=== PATIENT | male | born 1980 | race Caucasian/White ===

== ENCOUNTER → 2019-03-28 11:36 | Outpatient (BNVA) | payer OTHER, SELFPAY | PROVIDERS: Family Provider Nurse Practitioner Family; PCP Nurse Practitioner Family; Visit Provider Nurse Practitioner Family | DX: R53.82 Chronic fatigue, unspecified (principal) | CPT/HCPCS: 80053; 84443; 85025 ==

== ENCOUNTER 2020-12-15 18:04 | Emergency (ER) | payer SELFPAY ==
[2020-12-15 18:34] VITALS: BP 135/85; PULSE 92; RESP 18; TEMP 36.8; O2SAT 99; BMI 22.6
--- NOTE | 2020-12-15 18:40 | W.ED.EAR ---
HPI - Ear Problem General: Chief complaint: Ear Stated complaint: L Ear Lobe Injury Time Seen by Provider: 12/15/20 18:40 History of Present Illness: HPI Narrative: 40-year-old female comes in today with injury to the left earlobe. Patient was walking and tripped on a rug causing her fall against a shelf. Patient has a laceration sustained to the left earlobe. Patient denies any routine medications or medical problems. Patient appears well. Review of Systems General: Reports: 10 or more systems reviewed and unremarkable except in HPI and below Skin/Breast: Reports: other (Left earlobe laceration) [facility] PFSH: Family History (Updated 03/28/19 @ 11:25 by Lisa Guerrero LPN) Mother Family history of thyroid problem Social History (Updated 03/28/19 @ 11:26 by Lisa Guerrero LPN) Smoking and tobacco status: current every day smoker cigarettes Packs smoked per day: 0.5 Alcohol intake: never Lives independently: Yes Household members: spouse Housing: House Marital status: History of recent travel: No Physical Exam Const: COMMON NORMALS: no acute distress and patient oriented x3 GENERAL APPEARANCE: cooperative HENMT: COMMON NORMALS: normocephalic, TM's normal bilaterally and Normal external nose present HEAD & SCALP: normocephalic and other (Laceration to left earlobe, irregular and approximately 3 cm) NOSE: Normal external nose present TYMPANIC MEMBRANE: TM's normal bilaterally Eye: GENERAL EYE: appearance normal, both eyes and all related structures Neck/C-Spine: COMMON NORMALS: full ROM Chest: COMMONS NORMALS: normal inspection of the chest Resp: COMMON NORMALS: normal respiratory effort EFFORT & INSPECTION: Yes able to speak in complete sentences Cardio: COMMON NORMALS: regular rate and regular rhythm RATE: regular rate RHYTHM: regular rhythm GI: COMMON NORMALS: non-tender Back/Pelvis: COMMON NORMALS: thoracic and lumbar spine normal to inspection Extremity: COMMON NORMALS: normal to inspection Neuro: COMMON NORMALS: patient oriented x3 and moves all extremities Psych: COMMON NORMALS: mental status grossly normal and cooperative Skin: COMMON NORMALS: no rashes or lesions noted GENERAL SKIN EXAM: no rashes or lesions noted Procedures Laceration Laceration 1: Site: face Side (If applicable): left Size (cm): 3 Description: irregular Depth: simple, single layer Local Anesthetic: lidocaine 1% Amount of anesthesia used (mL): 4 Pre-repair: wound explored, irrigated extensively and deep structures intact Skin layer closed with: nylon Size (cm): 5-0 Number of sutures: 6 Technique: simple, interrupted Course Vital Signs: Vital signs: Vital Signs Temperature 98.2 F 12/15/20 18:34 Pulse Rate 92 12/15/20 18:34 Respiratory Rate 18 12/15/20 18:34 Blood Pressure 135/85 12/15/20 18:34 Pulse Oximetry 99 12/15/20 18:34 MDM - Ear MDM Narrative: Medical decision making narrative: Patient comes in today for complaints of injury to the left ear. On exam patient has an irregular laceration to the left earlobe. No fracture or foreign body is noted within the wound. Differential diagnosis includes but not limited to need for prophylaxis tetanus, need for prophylaxis antibiotic, laceration, head injury. No significant injury is noted. Wound was repaired with simple interrupted sutures. Patient tolerated well. Patient reported understanding of post procedure care and need for follow-up. Discharge Plan Discharge Patient Disposition: Home Clinical Impression: Laceration of left ear Qualifiers: Encounter type: initial encounter Qualified Code(s): S01.312A - Laceration without foreign body of left ear, initial encounter Condition: Stable Prescriptions: New cephalexin 500 mg capsule 500 mg PO BID 7 Days Qty: 14 RF: 0 Discharge Orders: Discharge ED (Routine); Ordered 12/15/20 Ordered By: Boris Pantoja Referrals: Tan Segundo FNP [Primary Care Provider] - Discharge Diet: Usual diet Discharge Activity: Increase activity as tolerated Patient Instructions: Laceration (ED), Opioid Safety Activity Restrictions/Additional Instructions: Keep wound clean and dry. Use acetaminophen and ibuprofen for pain. Use antibiotic cephalexin 500 mg twice a day for 7 days for prophylaxis against infection. Drink plenty of water with medication. Is important keep the wound as dry as possible for the next 2 days. After that she can wash it and then dry thoroughly. There is no need to apply antibiotic ointment or other skin preparations to the wound. You may cover the wound with a Band-Aid for protection. Follow-up with primary care in 5 to 7 days for recheck of wound and suture removal. Return to the emergency department for new concerns Coding Level of Care Code ED [employer] for Russ Boland
== END 2020-12-15 19:30 | disposition home or self-care (01) ==
PROVIDERS: Emergency Provider Nurse Practitioner Family; PCP Nurse Practitioner Family
DX: S01.312A Laceration without foreign body of left ear, initial encounter (principal); W18.09XA Striking against other object with subsequent fall, initial encounter; F17.210 Nicotine dependence, cigarettes, uncomplicated
CPT/HCPCS: 12013; 99282